=== PATIENT | female | born 1985 | race African-American/Black ===

== ENCOUNTER 2018-02-04 01:47 | Emergency (ER) | payer MEDICAID, OTHER ==
[~2018-02-04] VITALS: Ht 157.5 cm; Wt 50.0 kg
[2018-02-04] MEDS ORDERED: SODIUM CHLORIDE 0.9% 1,000 ML IV ONE (02:23)
[2018-02-04] MEDS ORDERED: ONDANSETRON HCL 4MG/2ML INJ IV STA (02:23)
[2018-02-04] MEDS ORDERED: MAGNESIUM/ALUMINUM HYDROXIDE/SIMETHICONE 30ML UDC PO STA (02:23)
[2018-02-04 03:18] LABS: CHLORIDE 94 mEq/L (98-107)
[2018-02-04 03:24] LABS: BASOPHILS % 0.6 % (0.0-2.0); EOSINOPHILS % 0.1 % (0.0-5.0); HEMOGLOBIN. 14.3 g/dL (12.0-16.0); MEAN CORPUSCULAR HEMOGLOBIN 28.4 pg (28.0-32.0); MEAN CORPUSCULAR VOLUME 87.5 fL (81.0-99.0); MEAN PLATELET VOLUME 8.1 fl (7.4-10.4); MONOCYTES % 6.1 % (2.0-8.0); NEUTROPHILS % 73.2 % (40.0-76.0); PLATELET 321 x1000/uL (130-400); RED BLOOD CELL COUNT 5.03 mill/uL (4.2-5.4); RED CELL DISTRIBUTION WIDTH 17.1 % (11.6-14.6)
[2018-02-04 05:33] VITALS: BP 134/93
== END 2018-02-04 05:36 | disposition home or self-care (01) ==
LOC: ER 01:47
DX: K21.9 Gastro-esophageal reflux disease without esophagitis (principal); F12.10 Cannabis abuse, uncomplicated
CPT/HCPCS: 36415; 80053; 83690; 85025; 96361; 96374; 99285; J2405; J7030

== ENCOUNTER 2019-10-14 16:04 | Emergency (ER) | payer MEDICAID ==
[~2019-10-14] VITALS: Ht 167.6 cm; Wt 52.0 kg
[2019-10-14] MEDS ORDERED: ACETAMINOPHEN 325MG TABLET PO STA (16:36)
[2019-10-14 17:07] LABS: HEMATOCRIT. 38.1 % (36.0-48.0); HEMOGLOBIN. 12.7 g/dL (12.0-16.0); MEAN CORPUSCULAR VOLUME 75.1 fL (81.0-99.0); MEAN PLATELET VOLUME 8.1 fl (7.4-10.4); PLATELET 360 x1000/uL (130-400); RED BLOOD CELL COUNT 5.07 mill/uL (4.2-5.4)
[2019-10-14 17:12] LABS: CHLORIDE 98 mEq/L (98-107)
[2019-10-14 17:22] LABS: PROTHROMBIN TIME 10.8 sec (9.6-11.0)
[2019-10-14 19:53] VITALS: BP 150/90
[2019-10-14 20:32] LABS: PLATELET ESTIMATE NORMAL
== END 2019-10-14 19:55 | disposition home or self-care (01) ==
LOC: ER 16:04
DX: R10.30 Lower abdominal pain, unspecified (principal); F12.10 Cannabis abuse, uncomplicated; D64.9 Anemia, unspecified; F20.9 Schizophrenia, unspecified; Z98.51 Tubal ligation status; Z87.19 Personal history of other diseases of the digestive system
CPT/HCPCS: 36415; 80053; 85025; 99283

== ENCOUNTER 2020-12-13 15:18 | Inpatient (IN) | payer MEDICAID ==
[~2020-12-13] VITALS: Ht 160 cm; Wt 46.3 kg
[2020-12-13] MEDS ORDERED: MAGNESIUM/ALUMINUM HYDROXIDE/SIMETHICONE 30ML UDC PO STA (15:53)
[2020-12-13] MEDS ORDERED: VISCOUS LIDOCAINE 2% 15 ML UDC PO STA (15:53)
[2020-12-13] MEDS ORDERED: ONDANSETRON HCL 4MG/2ML INJ IV STA (15:53)
[2020-12-13] MEDS ORDERED: SODIUM CHLORIDE 0.9% 1,000 ML IV ONE (16:00)
[2020-12-13 16:42] LABS: HEMATOCRIT. 34.4 % (36.0-48.0); HEMOGLOBIN. 11.3 g/dL (12.0-16.0); MEAN CORPUSCULAR HEMOGLOBIN 25.9 pg (28.0-32.0); MEAN CORPUSCULAR VOLUME 78.5 fL (81.0-99.0); MEAN PLATELET VOLUME 8.3 fl (7.4-10.4); PLATELET 353 x1000/uL (130-400); RED BLOOD CELL COUNT 4.38 mill/uL (4.2-5.4); RED CELL DISTRIBUTION WIDTH 22.5 % (11.6-14.6)
[2020-12-13] MEDS ORDERED: MORPHINE SULFATE 4 MG/ML CPJ (NOT FOR IM USE) IV ONE (16:45)
[2020-12-13 16:48] LABS: CHLORIDE 105 mEq/L (98-107)
[2020-12-13 16:51] LABS: PROTHROMBIN TIME 10.4 sec (9.6-11.0)
[2020-12-13 17:59] LABS: PLATELET ESTIMATE NORMAL
[2020-12-13 20:40] LABS: CLARITY URINE TURBID (CLEAR); COLOR URINE YELLOW (YELLOW); KETONES URINE NEGATIVE (NEGATIVE); LEUKOCYTE ESTERASE URINE 2+ (NEGATIVE); NITRITE URINE NEGATIVE (NEGATIVE); OCCULT BLOOD URINE 1+ (NEGATIVE); PROTEIN URINE 1+ (NEGATIVE); SPECIFIC GRAVITY URINE 1.025 (1.005-1.030)
[2020-12-13] MEDS ORDERED: IOHEXOL-300 100 ML BOTTLE ONE (21:12)
[2020-12-13] MEDS ORDERED: CEFTRIAXONE 1 G PREMIX 50 ML IV NR (22:15)
[2020-12-14 08:00] VITALS: BP 170/105
[2020-12-14] MEDS ORDERED: ONDANSETRON HCL 4MG/2ML INJ IV PRN ×2 (08:00→14:15)
[2020-12-14] MEDS ORDERED: NALOXONE HCL 0.4MG/ML VIAL IV PRN (08:00)
[2020-12-14] MEDS: SODIUM CHLORIDE 0.9% 1,000 ML IV SCH (08:50)
[2020-12-14] MEDS: PANTOPRAZOLE SODIUM 40 MG/VIAL IV SCH (08:50)
[2020-12-14] MEDS: CLONIDINE 0.1MG TABLET PO PRN ×2 (09:01→23:59)
[2020-12-14] MEDS: MORPHINE SULFATE 2 MG/ML CPJ (NOT FOR IM USE) IV PRN (09:02)
[2020-12-14 09:30] LABS: HEMOGLOBIN 11.7 g/dL (12.0-16.0); MEAN CORPUSCULAR VOLUME 77.9 fL (81.0-99.0); PLATELET 337 x1000/uL (130-400); RED CELL DISTRIBUTION WIDTH 22.7 % (11.6-14.6)
[2020-12-14 09:36] LABS: CHLORIDE 105 mEq/L (98-107)
[2020-12-14 10:22] VITALS: BP 170/105
[2020-12-14 12:00] VITALS: BP 171/100
[2020-12-14] MEDS ORDERED: PROPOFOL 200MG/20ML VIAL IV ONE (13:39)
[2020-12-14] MEDS ORDERED: SODIUM CHLORIDE 0.9% 1,000 ML IV SCH (14:15)
[2020-12-14] MEDS ORDERED: HYDRALAZINE 20MG/ML VIAL IV PRN ×2 (15:45→19:45)
[2020-12-14 16:15] LABS: TOTAL IRON BINDING CAPACITY 388 ug/dL (250-450)
[2020-12-14 17:15] LABS: BASOPHILS % 0.9 % (0.0-2.0); EOSINOPHILS % 0.1 % (0.0-5.0); HEMATOCRIT. 37.4 % (36.0-48.0); HEMOGLOBIN. 12.2 g/dL (12.0-16.0); LYMPHOCYTES % 22.1 % (20.0-50.0); MEAN CORPUSCULAR HEMOGLOBIN 25.4 pg (28.0-32.0); MEAN CORPUSCULAR VOLUME 77.8 fL (81.0-99.0); MEAN PLATELET VOLUME 8.3 fl (7.4-10.4); NEUTROPHILS % 71.9 % (40.0-76.0); PLATELET 345 x1000/uL (130-400); RED BLOOD CELL COUNT 4.81 mill/uL (4.2-5.4); RED CELL DISTRIBUTION WIDTH 22.8 % (11.6-14.6)
[2020-12-14 17:22] LABS: CHLORIDE 107 mEq/L (98-107)
[2020-12-14 17:33] LABS: CREATINE KINASE 29 IU/L (26-192)
[2020-12-14 17:35] LABS: CREATINE KINASE MB FRACTION < 1.0 ng/mL (0.5-3.6)
[2020-12-14 18:56] LABS: FOLIC ACID (FOLATE) SERUM 16.6 ng/mL (>5.38)
[2020-12-14] MEDS ORDERED: POTASSIUM CHLORIDE INJ 40 MEQ in DEXT 5% WATER 500 ML IV NR (20:00)
[2020-12-14] MEDS ORDERED: HYDRALAZINE 10 MG in SODIUM CHLORIDE 0.9% 49.5 ML IV PRN (20:00)
[2020-12-14] MEDS ORDERED: PROCHLORPERAZINE 10MG/2ML VIAL IV PRN (20:15)
[2020-12-14 20:28] LABS: T4 FREE 1.2 ng/dL (0.76-1.46)
[2020-12-14] MEDS ORDERED: IOHEXOL-350 100 ML BOTTLE ONE (21:26)
[2020-12-14 21:35] VITALS: BP 146/91
[2020-12-14] MEDS: NITROGLYCERIN OINT 1GM/INCH UDPKT TD SCH (22:00)
[2020-12-14 22:38] VITALS: BP 148/97
[2020-12-15] VITALS (13 sets, daily range): BP systolic 116–150; BP diastolic 73–94
[2020-12-15] MEDS: CEFTRIAXONE 1,000 MG in DEXTROSE 5% WATER 50 ML IV SCH ×2 (04:27→19:48)
[2020-12-15] MEDS: SODIUM CHLORIDE 0.9% 1,000 ML IV SCH ×2 (04:27→14:50)
[2020-12-15] MEDS: NITROGLYCERIN OINT 1GM/INCH UDPKT TD SCH ×3 (06:25→21:04)
[2020-12-15] MEDS: PANTOPRAZOLE SODIUM 40 MG/VIAL IV SCH (08:39)
[2020-12-15 09:46] LABS: BASOPHILS % 0.5 % (0.0-2.0); EOSINOPHILS % 0.4 % (0.0-5.0); HEMATOCRIT. 35.3 % (36.0-48.0); HEMOGLOBIN. 11.3 g/dL (12.0-16.0); LYMPHOCYTES % 21.1 % (20.0-50.0); MEAN CORPUSCULAR HEMOGLOBIN 25.1 pg (28.0-32.0); MEAN CORPUSCULAR VOLUME 78.6 fL (81.0-99.0); MEAN PLATELET VOLUME 8.7 fl (7.4-10.4); MONOCYTES % 7.3 % (2.0-8.0); NEUTROPHILS % 70.7 % (40.0-76.0); PLATELET 323 x1000/uL (130-400); RED BLOOD CELL COUNT 4.49 mill/uL (4.2-5.4); RED CELL DISTRIBUTION WIDTH 22.6 % (11.6-14.6)
[2020-12-15 09:52] LABS: CHLORIDE 105 mEq/L (98-107)
[2020-12-15] MEDS ORDERED: HYDRALAZINE 20MG/ML VIAL IV PRN (10:30)
[2020-12-15] MEDS ORDERED: POTASSIUM CHLORIDE INJ 40 MEQ in DEXT 5% WATER 250 ML IV SCH (12:00)
[2020-12-16] VITALS (11 sets, daily range): BP systolic 105–154; BP diastolic 60–92
[2020-12-16] MEDS: NITROGLYCERIN OINT 1GM/INCH UDPKT TD SCH ×3 (05:09→22:00)
[2020-12-16] MEDS: PANTOPRAZOLE SODIUM 40 MG/VIAL IV SCH (09:11)
[2020-12-16] MEDS: SODIUM CHLORIDE 0.9% 1,000 ML IV SCH ×2 (13:54)
[2020-12-16] MEDS: IRON SUCROSE COMPLEX 100 MG/5 ML ML IV SCH (18:34)
[2020-12-16] MEDS: CEFTRIAXONE 1,000 MG in DEXTROSE 5% WATER 50 ML IV SCH (20:52)
[2020-12-17] VITALS (15 sets, daily range): BP systolic 101–147; BP diastolic 62–87
[2020-12-17] MEDS: MORPHINE SULFATE 2 MG/ML CPJ (NOT FOR IM USE) IV PRN ×2 (00:16→19:49)
[2020-12-17] MEDS: SODIUM CHLORIDE 0.9% 1,000 ML IV SCH ×3 (04:48→15:11)
[2020-12-17] MEDS: NITROGLYCERIN OINT 1GM/INCH UDPKT TD SCH ×3 (05:57→22:42)
[2020-12-17] MEDS: PANTOPRAZOLE SODIUM 40 MG/VIAL IV SCH (08:43)
[2020-12-17] MEDS: METRONIDAZOLE 500 MG PREMIX 100 ML IV SCH ×2 (14:32→22:44)
[2020-12-17] MEDS: IRON SUCROSE COMPLEX 100 MG/5 ML ML IV SCH (16:35)
[2020-12-17] MEDS: CEFTRIAXONE 1,000 MG in DEXTROSE 5% WATER 50 ML IV SCH (19:48)
[2020-12-17 21:55] LABS: UCG SCREEN NEGATIVE
[2020-12-18] VITALS (10 sets, daily range): BP systolic 102–147; BP diastolic 60–90
[2020-12-18] MEDS: MORPHINE SULFATE 2 MG/ML CPJ (NOT FOR IM USE) IV PRN ×2 (00:10→04:20)
[2020-12-18] MEDS: SODIUM CHLORIDE 0.9% 1,000 ML IV SCH (02:00)
[2020-12-18] MEDS: NITROGLYCERIN OINT 1GM/INCH UDPKT TD SCH ×2 (05:50→22:00)
[2020-12-18] MEDS: METRONIDAZOLE 500 MG PREMIX 100 ML IV SCH ×2 (05:51→22:23)
[2020-12-18] MEDS: PANTOPRAZOLE SODIUM 40 MG/VIAL IV SCH (09:08)
[2020-12-18] MEDS ORDERED: BACITRACIN 50,000 UNITS/VIAL ONE (09:21)
[2020-12-18] MEDS ORDERED: BUPIVACAINE HCL/PF 0.5% (5MG/ML) 10ML ONE (09:21)
[2020-12-18 10:36] LABS: CHLORIDE 108 mEq/L (98-107)
[2020-12-18 11:52] LABS: BASOPHILS % 0.6 % (0.0-2.0); EOSINOPHILS % 0.4 % (0.0-5.0); HEMATOCRIT. 30.9 % (36.0-48.0); HEMOGLOBIN. 9.8 g/dL (12.0-16.0); LYMPHOCYTES % 17.8 % (20.0-50.0); MEAN CORPUSCULAR HEMOGLOBIN 25.1 pg (28.0-32.0); MEAN CORPUSCULAR VOLUME 78.9 fL (81.0-99.0); MONOCYTES % 9.3 % (2.0-8.0); NEUTROPHILS % 71.9 % (40.0-76.0); PLATELET 240 x1000/uL (130-400); RED BLOOD CELL COUNT 3.92 mill/uL (4.2-5.4); RED CELL DISTRIBUTION WIDTH 23.1 % (11.6-14.6)
[2020-12-18] MEDS ORDERED: HYDROMORPHONE HCL/PF 2MG/ML (OR) ONE (12:45)
[2020-12-18] MEDS ORDERED: PROPOFOL 200MG/20ML VIAL IV ONE (12:45)
[2020-12-18] MEDS ORDERED: ROCURONIUM BROMIDE 10MG/ML VIAL 5ML IV ONE (12:45)
[2020-12-18] MEDS ORDERED: FENTANYL CITRATE/PF 50MCG/ML 2ML VIAL ONE ×2 (12:45→15:17)
[2020-12-18] MEDS ORDERED: SUCCINYLCHOLINE CHLORIDE 200MG/10ML IV ONE (12:46)
[2020-12-18] MEDS ORDERED: MIDAZOLAM HCL 2 MG/2 ML VIAL ONE (12:46)
[2020-12-18] MEDS ORDERED: LIDOCAINE HCL/PF 1% 10 MG/ML 5ML VIAL ONE (12:46)
[2020-12-18] MEDS ORDERED: METRONIDAZOLE 500 MG PREMIX 100 ML IV ONE (14:01)
[2020-12-18] MEDS ORDERED: EPHEDRINE SULFATE 50MG/ML VIAL ONE (14:03)
[2020-12-18] MEDS ORDERED: ONDANSETRON HCL 4MG/2ML INJ IV PRN (15:15)
[2020-12-18] MEDS ORDERED: HYDROMORPHONE HCL/PF 2MG/ML CPJ IV PRN (15:15)
[2020-12-18] MEDS ORDERED: MEPERIDINE HCL/PF 25MG/ML CPJ IV PRN (15:15)
[2020-12-18] MEDS ORDERED: FENTANYL CITRATE/PF 50MCG/ML 2ML VIAL IV PRN (15:15)
[2020-12-18] MEDS ORDERED: GLYCOPYRROLATE 0.2 MG/ML 2ML VIAL ONE (15:28)
[2020-12-18] MEDS ORDERED: NEOSTIGMINE METHYLSULFATE 1MG/ML 10 ML VIAL ONE (15:28)
[2020-12-18] MEDS ORDERED: NALOXONE INJ IV PRN (16:15)
[2020-12-18] MEDS ORDERED: ONDANSETRON INJ IV PRN (16:15)
[2020-12-18] MEDS: HYDROMORPHONE PCA 10MG/50ML IV PRN (16:21)
[2020-12-18] MEDS: IRON SUCROSE COMPLEX 100 MG/5 ML ML IV SCH (17:00)
[2020-12-18] MEDS: CEFTRIAXONE 1,000 MG in DEXTROSE 5% WATER 50 ML IV SCH (20:24)
[2020-12-18] MEDS: DEXT 5%/0.45% NACL KCL 20MEQ/L 1,000 ML IV SCH (21:30)
[2020-12-19] VITALS (11 sets, daily range): BP systolic 113–147; BP diastolic 63–99
[2020-12-19] MEDS: NITROGLYCERIN OINT 1GM/INCH UDPKT TD SCH ×3 (06:00→22:00)
[2020-12-19] MEDS: METRONIDAZOLE 500 MG PREMIX 100 ML IV SCH ×3 (06:03→23:01)
[2020-12-19] MEDS: PANTOPRAZOLE SODIUM 40 MG/VIAL IV SCH (10:43)
[2020-12-19] MEDS: HYDROMORPHONE PCA 10MG/50ML IV PRN (10:46)
[2020-12-19] MEDS: DIPHENHYDRAMINE INJ IV PRN ×3 (11:00→20:25)
[2020-12-19] MEDS: DEXT 5%/0.45% NACL KCL 20MEQ/L 1,000 ML IV SCH ×2 (11:05→18:23)
[2020-12-19 17:44] LABS: EOSINOPHILS % 0.2 % (0.0-5.0); HEMATOCRIT. 26.2 % (36.0-48.0); HEMOGLOBIN. 8.6 g/dL (12.0-16.0); LYMPHOCYTES % 10.3 % (20.0-50.0); MEAN CORPUSCULAR HEMOGLOBIN 25.9 pg (28.0-32.0); MEAN PLATELET VOLUME 8.3 fl (7.4-10.4); MONOCYTES % 6.8 % (2.0-8.0); NEUTROPHILS % 82.7 % (40.0-76.0); PLATELET 250 x1000/uL (130-400); RED BLOOD CELL COUNT 3.32 mill/uL (4.2-5.4)
[2020-12-19 18:56] LABS: CHLORIDE 104 mEq/L (98-107)
[2020-12-20] VITALS (12 sets, daily range): BP systolic 107–136; BP diastolic 56–96
[2020-12-20] MEDS: DIPHENHYDRAMINE INJ IV PRN ×3 (01:16→18:32)
[2020-12-20] MEDS: HYDROMORPHONE PCA 10MG/50ML IV PRN ×2 (05:59→20:04)
[2020-12-20] MEDS: NITROGLYCERIN OINT 1GM/INCH UDPKT TD SCH ×3 (06:00→21:45)
[2020-12-20] MEDS: METRONIDAZOLE 500 MG PREMIX 100 ML IV SCH ×3 (06:16→21:06)
[2020-12-20] MEDS: DEXT 5%/0.45% NACL KCL 20MEQ/L 1,000 ML IV SCH ×3 (06:17→20:07)
[2020-12-20] MEDS ORDERED: CEFTRIAXONE 1,000 MG in DEXTROSE 5% WATER 50 ML IV SCH (07:00)
[2020-12-20] MEDS ORDERED: CEFTRIAXONE 1 G PREMIX 50 ML IV SCH (07:00)
[2020-12-20] MEDS: PANTOPRAZOLE SODIUM 40 MG/VIAL IV SCH (08:35)
[2020-12-20] MEDS: CEFTRIAXONE 1,000 MG in DEXTROSE 5% WATER 50 ML IV SCH (10:09)
[2020-12-21] VITALS (9 sets, daily range): BP systolic 84–114; BP diastolic 53–69
[2020-12-21] MEDS: METRONIDAZOLE 500 MG PREMIX 100 ML IV SCH ×3 (05:17→21:27)
[2020-12-21] MEDS: NITROGLYCERIN OINT 1GM/INCH UDPKT TD SCH ×3 (06:00→21:29)
[2020-12-21] MEDS: DEXT 5%/0.45% NACL KCL 20MEQ/L 1,000 ML IV SCH ×2 (08:16→21:30)
[2020-12-21] MEDS: PANTOPRAZOLE SODIUM 40 MG/VIAL IV SCH (08:42)
[2020-12-21] MEDS: CEFTRIAXONE 1,000 MG in DEXTROSE 5% WATER 50 ML IV SCH (11:04)
[2020-12-21] MEDS: HYDROMORPHONE HCL/PF 2MG/ML CPJ IV PRN ×2 (15:41→19:54)
[2020-12-21 18:23] LABS: HEMOGLOBIN. 10.5 g/dL (12.0-16.0); MEAN CORPUSCULAR HEMOGLOBIN 26.1 pg (28.0-32.0); MEAN CORPUSCULAR VOLUME 79.7 fL (81.0-99.0); MEAN PLATELET VOLUME 8.8 fl (7.4-10.4); PLATELET 291 x1000/uL (130-400); RED BLOOD CELL COUNT 4.01 mill/uL (4.2-5.4); RED CELL DISTRIBUTION WIDTH 23.5 % (11.6-14.6)
[2020-12-21 18:29] LABS: CHLORIDE 100 mEq/L (98-107)
[2020-12-21 21:04] LABS: PLATELET ESTIMATE NORMAL
[2020-12-21] MEDS: DIPHENHYDRAMINE 50MG/ML VIAL IV PRN (23:11)
[2020-12-22] VITALS: BP 102/59
[2020-12-22] MEDS: HYDROMORPHONE HCL/PF 2MG/ML CPJ IV PRN ×3 (00:35→20:51)
[2020-12-22 04:00] VITALS: BP 97/60
[2020-12-22] MEDS: NITROGLYCERIN OINT 1GM/INCH UDPKT TD SCH ×3 (05:41→22:00)
[2020-12-22] MEDS: METRONIDAZOLE 500 MG PREMIX 100 ML IV SCH ×3 (06:08→22:47)
[2020-12-22] MEDS: DIPHENHYDRAMINE 50MG/ML VIAL IV PRN ×3 (07:24→22:09)
[2020-12-22 08:00] VITALS: BP 90/55
[2020-12-22] MEDS: PANTOPRAZOLE SODIUM 40 MG/VIAL IV SCH (09:15)
[2020-12-22] MEDS: DEXT 5%/0.45% NACL 1000ML 1,000 ML IV SCH ×2 (09:15→18:02)
[2020-12-22] MEDS: KETOROLAC 30MG/ML VIAL IV PRN ×2 (09:16→15:27)
[2020-12-22 09:34] LABS: HEMATOCRIT. 29.1 % (36.0-48.0); HEMOGLOBIN. 9.5 g/dL (12.0-16.0); MEAN CORPUSCULAR HEMOGLOBIN 25.6 pg (28.0-32.0); MEAN PLATELET VOLUME 8.3 fl (7.4-10.4); PLATELET 250 x1000/uL (130-400); RED BLOOD CELL COUNT 3.73 mill/uL (4.2-5.4); RED CELL DISTRIBUTION WIDTH 23.7 % (11.6-14.6)
[2020-12-22 09:41] LABS: CHLORIDE 104 mEq/L (98-107)
[2020-12-22] MEDS: CEFTRIAXONE 1,000 MG in DEXTROSE 5% WATER 50 ML IV SCH (10:30)
[2020-12-22 12:00] VITALS: BP 89/60
[2020-12-22 14:07] LABS: PLATELET ESTIMATE NORMAL
[2020-12-22 16:00] VITALS: BP 95/52
[2020-12-22] MEDS ORDERED: HYDRALAZINE 10 MG in SODIUM CHLORIDE 0.9% 49.5 ML IV PRN (17:45)
[2020-12-22] MEDS: DEXT 5%/0.9% NACL 1,000 ML IV SCH (22:50)
[2020-12-23] VITALS (10 sets, daily range): BP systolic 88–116; BP diastolic 53–79
[2020-12-23] MEDS: HYDROMORPHONE HCL/PF 2MG/ML CPJ IV PRN ×3 (01:22→18:12)
[2020-12-23] MEDS: DIPHENHYDRAMINE 50MG/ML VIAL IV PRN ×4 (04:18→22:41)
[2020-12-23] MEDS: NITROGLYCERIN OINT 1GM/INCH UDPKT TD SCH ×2 (06:00→21:00)
[2020-12-23 06:40] LABS: CHLORIDE 106 mEq/L (98-107)
[2020-12-23 06:50] LABS: HEMATOCRIT. 21.6 % (36.0-48.0); HEMOGLOBIN. 7.3 g/dL (12.0-16.0); MEAN PLATELET VOLUME 8.4 fl (7.4-10.4); PLATELET 206 x1000/uL (130-400); RED CELL DISTRIBUTION WIDTH 23.9 % (11.6-14.6)
[2020-12-23] MEDS: DEXT 5%/0.9% NACL 1,000 ML IV SCH ×3 (07:03→22:15)
[2020-12-23] MEDS: KETOROLAC 30MG/ML VIAL IV PRN ×3 (08:27→21:06)
[2020-12-23] MEDS: PANTOPRAZOLE SODIUM 40 MG/VIAL IV SCH (08:27)
[2020-12-23] MEDS: CEFTRIAXONE 1,000 MG in DEXTROSE 5% WATER 50 ML IV SCH (10:58)
[2020-12-23] MEDS: METRONIDAZOLE 500 MG PREMIX 100 ML IV SCH ×2 (13:05→22:13)
[2020-12-23 15:27] LABS: NUCLEATED RED BLOOD CELLS 1 /100 WBC; PLATELET ESTIMATE NORMAL
[2020-12-23 21:38] LABS: HEMATOCRIT 27.4 % (36.0-48.0); HEMOGLOBIN 9.5 g/dL (12.0-16.0)
[2020-12-23] MEDS: ACETAMINOPHEN 650MG/20.3ML UDC PO PRN (22:33)
[2020-12-24] VITALS: BP 108/75
[2020-12-24] MEDS: HYDROMORPHONE HCL/PF 2MG/ML CPJ IV PRN ×8 (00:02→21:46)
[2020-12-24 04:00] VITALS: BP 103/69
[2020-12-24] MEDS: DIPHENHYDRAMINE 50MG/ML VIAL IV PRN ×3 (04:46→18:29)
[2020-12-24] MEDS: METRONIDAZOLE 500 MG PREMIX 100 ML IV SCH ×3 (06:40→22:00)
[2020-12-24] MEDS: DEXT 5%/0.9% NACL 1,000 ML IV SCH ×2 (06:52→22:00)
[2020-12-24 06:58] LABS: CHLORIDE 109 mEq/L (98-107)
[2020-12-24 07:20] LABS: HEMOGLOBIN. 8.7 g/dL (12.0-16.0); MEAN CORPUSCULAR HEMOGLOBIN 26.7 pg (28.0-32.0); MEAN CORPUSCULAR VOLUME 79.4 fL (81.0-99.0); MEAN PLATELET VOLUME 8.4 fl (7.4-10.4); PLATELET 158 x1000/uL (130-400); RED BLOOD CELL COUNT 3.27 mill/uL (4.2-5.4); RED CELL DISTRIBUTION WIDTH 22.2 % (11.6-14.6)
[2020-12-24 08:00] VITALS: BP 98/61
[2020-12-24] MEDS: NITROGLYCERIN OINT 1GM/INCH UDPKT TD SCH ×2 (09:00→21:00)
[2020-12-24] MEDS: CEFTRIAXONE 1,000 MG in DEXTROSE 5% WATER 50 ML IV SCH (10:19)
[2020-12-24] MEDS: PANTOPRAZOLE SODIUM 40 MG/VIAL IV SCH (10:22)
[2020-12-24 12:00] VITALS: BP 107/71
[2020-12-24 16:00] VITALS: BP 115/72
[2020-12-24 16:01] LABS: PLATELET ESTIMATE NORMAL
[2020-12-24 20:00] VITALS: BP 109/65
[2020-12-24] MEDS: KETOROLAC 30MG/ML VIAL IV PRN (20:12)
[2020-12-25] VITALS: BP 112/72
[2020-12-25] MEDS: HYDROMORPHONE HCL/PF 2MG/ML CPJ IV PRN ×5 (00:33→21:03)
[2020-12-25] MEDS: DIPHENHYDRAMINE 50MG/ML VIAL IV PRN ×2 (02:09→20:09)
[2020-12-25 04:00] VITALS: BP 110/74
[2020-12-25] MEDS: METRONIDAZOLE 500 MG PREMIX 100 ML IV SCH ×3 (06:08→21:03)
[2020-12-25] MEDS: DEXT 5%/0.9% NACL 1,000 ML IV SCH ×3 (06:09→19:04)
[2020-12-25] MEDS: KETOROLAC 30MG/ML VIAL IV PRN ×2 (06:09→19:03)
[2020-12-25 07:16] LABS: HEMATOCRIT. 30.8 % (36.0-48.0); MEAN CORPUSCULAR HEMOGLOBIN 26.3 pg (28.0-32.0); MEAN CORPUSCULAR VOLUME 80.9 fL (81.0-99.0); MEAN PLATELET VOLUME 8.8 fl (7.4-10.4); PLATELET 137 x1000/uL (130-400); RED BLOOD CELL COUNT 3.81 mill/uL (4.2-5.4); RED CELL DISTRIBUTION WIDTH 22.2 % (11.6-14.6)
[2020-12-25 07:28] LABS: CHLORIDE 115 mEq/L (98-107)
[2020-12-25] MEDS: NITROGLYCERIN OINT 1GM/INCH UDPKT TD SCH ×2 (08:34→21:00)
[2020-12-25] MEDS: PANTOPRAZOLE SODIUM 40 MG/VIAL IV SCH (08:56)
[2020-12-25] MEDS: CEFTRIAXONE 1,000 MG in DEXTROSE 5% WATER 50 ML IV SCH (09:06)
[2020-12-25] MEDS ORDERED: LACTULOSE 20G/30ML UDC PO PRN (16:00)
[2020-12-25 20:00] VITALS: BP 132/74
[2020-12-25 20:53] LABS: PLATELET ESTIMATE NORMAL
[2020-12-26] VITALS: BP 105/75
[2020-12-26] MEDS: HYDROMORPHONE HCL/PF 2MG/ML CPJ IV PRN ×5 (00:38→22:18)
[2020-12-26] MEDS: DIPHENHYDRAMINE 50MG/ML VIAL IV PRN ×3 (03:18→20:02)
[2020-12-26 04:00] VITALS: BP 105/75
[2020-12-26] MEDS: DEXT 5%/0.9% NACL 1,000 ML IV SCH ×2 (06:00→22:00)
[2020-12-26] MEDS: METRONIDAZOLE 500 MG PREMIX 100 ML IV SCH ×3 (06:09→22:22)
[2020-12-26] MEDS: KETOROLAC 30MG/ML VIAL IV PRN ×2 (06:10→18:45)
[2020-12-26 08:00] VITALS: BP 100/59
[2020-12-26] MEDS: FOLIC ACID 1MG TABLET PO SCH (09:00)
[2020-12-26] MEDS: THIAMINE HCL 100MG TABLET PO SCH (09:00)
[2020-12-26] MEDS: MULTIVITAMINS,THER W-MINERALS TABLET PO SCH (09:00)
[2020-12-26] MEDS: NITROGLYCERIN OINT 1GM/INCH UDPKT TD SCH ×2 (09:00→21:00)
[2020-12-26] MEDS: CEFTRIAXONE 1,000 MG in DEXTROSE 5% WATER 50 ML IV SCH (10:58)
[2020-12-26] MEDS: PANTOPRAZOLE SODIUM 40 MG/VIAL IV SCH (10:59)
[2020-12-26 12:00] VITALS: BP 80/45
[2020-12-26 16:00] VITALS: BP 121/79
[2020-12-26 20:00] VITALS: BP 111/68
[2020-12-27] VITALS: BP 111/69
[2020-12-27] MEDS: KETOROLAC 30MG/ML VIAL IV PRN ×2 (02:27→09:32)
[2020-12-27] MEDS: DIPHENHYDRAMINE 50MG/ML VIAL IV PRN ×2 (03:33→17:39)
[2020-12-27 04:00] VITALS: BP 133/87
[2020-12-27] MEDS: HYDROMORPHONE HCL/PF 2MG/ML CPJ IV PRN ×3 (04:44→20:14)
[2020-12-27] MEDS: DEXT 5%/0.9% NACL 1,000 ML IV SCH ×3 (05:15→20:58)
[2020-12-27] MEDS: METRONIDAZOLE 500 MG PREMIX 100 ML IV SCH ×3 (06:29→20:58)
[2020-12-27 08:00] VITALS: BP 120/77
[2020-12-27] MEDS: MULTIVITAMINS,THER W-MINERALS TABLET PO SCH (08:42)
[2020-12-27] MEDS: THIAMINE HCL 100MG TABLET PO SCH (08:42)
[2020-12-27] MEDS: FOLIC ACID 1MG TABLET PO SCH (08:42)
[2020-12-27 08:45] LABS: BASOPHILS % 0.2 % (0.0-2.0); EOSINOPHILS % 0.1 % (0.0-5.0); HEMATOCRIT. 25.5 % (36.0-48.0); HEMOGLOBIN. 8.5 g/dL (12.0-16.0); MEAN CORPUSCULAR HEMOGLOBIN 26.4 pg (28.0-32.0); MEAN PLATELET VOLUME 9.2 fl (7.4-10.4); MONOCYTES % 4.5 % (2.0-8.0); NEUTROPHILS % 79.2 % (40.0-76.0); PLATELET 174 x1000/uL (130-400); RED BLOOD CELL COUNT 3.22 mill/uL (4.2-5.4); RED CELL DISTRIBUTION WIDTH 22.7 % (11.6-14.6)
[2020-12-27 08:53] LABS: CHLORIDE 116 mEq/L (98-107)
[2020-12-27] MEDS: NITROGLYCERIN OINT 1GM/INCH UDPKT TD SCH ×2 (09:00→20:20)
[2020-12-27] MEDS: PANTOPRAZOLE SODIUM 40 MG/VIAL IV SCH (09:26)
[2020-12-27] MEDS: CEFTRIAXONE 1,000 MG in DEXTROSE 5% WATER 50 ML IV SCH (11:19)
[2020-12-27 12:00] VITALS: BP 139/77
[2020-12-27 16:00] VITALS: BP 125/80
[2020-12-27 20:00] VITALS: BP 143/87
[2020-12-27] MEDS ORDERED: NALOXONE HCL 0.4MG/ML VIAL IV PRN (20:00)
[2020-12-28] VITALS: BP 109/78
[2020-12-28] MEDS: HYDROMORPHONE HCL/PF 2MG/ML CPJ IV PRN ×6 (00:32→21:16)
[2020-12-28 04:00] VITALS: BP 141/83
[2020-12-28 05:15] VITALS: BP 141/83
[2020-12-28] MEDS: DEXT 5%/0.9% NACL 1,000 ML IV SCH ×3 (06:00→21:22)
[2020-12-28] MEDS: MULTIVITAMINS,THER W-MINERALS TABLET PO SCH (08:47)
[2020-12-28] MEDS: THIAMINE HCL 100MG TABLET PO SCH (08:47)
[2020-12-28] MEDS: NITROGLYCERIN OINT 1GM/INCH UDPKT TD SCH ×2 (08:47→21:22)
[2020-12-28] MEDS: FOLIC ACID 1MG TABLET PO SCH (08:47)
[2020-12-28] MEDS: PANTOPRAZOLE SODIUM 40 MG/VIAL IV SCH (08:49)
[2020-12-28] MEDS ORDERED: LIDOCAINE HCL 1% 20ML VIAL (Pyxis) INJ ONE (11:52)
[2020-12-28] MEDS ORDERED: LIDOCAINE HCL 2% JELLY 5ML ONE (11:52)
[2020-12-28] MEDS ORDERED: IOHEXOL-300 50 ML BOTTLE IV ONE (11:59)
[2020-12-28 16:00] VITALS: BP 113/78
[2020-12-28] MEDS: DIPHENHYDRAMINE 50MG/ML VIAL IV PRN (19:39)
[2020-12-28 20:00] VITALS: BP 122/83
[2020-12-28] MEDS ORDERED: POTASSIUM CHLORIDE INJ 40 MEQ in DEXT 5% WATER 500 ML IV NR (21:30)
[2020-12-29] VITALS: BP 135/79
[2020-12-29] MEDS: HYDROMORPHONE HCL/PF 2MG/ML CPJ IV PRN ×8 (00:31→21:49)
[2020-12-29 04:00] VITALS: BP 123/81
[2020-12-29] MEDS: DEXT 5%/0.9% NACL 1,000 ML IV SCH ×3 (05:43→22:03)
[2020-12-29] MEDS ORDERED: ZOLPIDEM TARTRATE 5MG TABLET PO PRN (06:00)
[2020-12-29 06:48] LABS: CHLORIDE 117 mEq/L (98-107)
[2020-12-29 06:49] LABS: BASOPHILS % 0.2 % (0.0-2.0); EOSINOPHILS % 0.1 % (0.0-5.0); HEMATOCRIT. 26.3 % (36.0-48.0); HEMOGLOBIN. 8.5 g/dL (12.0-16.0); LYMPHOCYTES % 10.8 % (20.0-50.0); MEAN CORPUSCULAR HEMOGLOBIN 25.9 pg (28.0-32.0); MONOCYTES % 9.3 % (2.0-8.0); NEUTROPHILS % 79.6 % (40.0-76.0); PLATELET 329 x1000/uL (130-400); RED BLOOD CELL COUNT 3.29 mill/uL (4.2-5.4); RED CELL DISTRIBUTION WIDTH 22.6 % (11.6-14.6)
[2020-12-29 08:00] VITALS: BP 133/85
[2020-12-29] MEDS: THIAMINE HCL 100MG TABLET PO SCH (09:22)
[2020-12-29] MEDS: PANTOPRAZOLE SODIUM 40 MG/VIAL IV SCH (09:23)
[2020-12-29] MEDS: FOLIC ACID 1MG TABLET PO SCH (09:23)
[2020-12-29] MEDS: MULTIVITAMINS,THER W-MINERALS TABLET PO SCH (09:23)
[2020-12-29] MEDS: NITROGLYCERIN OINT 1GM/INCH UDPKT TD SCH ×2 (09:24→20:21)
[2020-12-29] MEDS ORDERED: LIDOCAINE HCL 2% JELLY 5ML ONE (09:24)
[2020-12-29] MEDS ORDERED: IOHEXOL-300 50 ML BOTTLE IV ONE (09:24)
[2020-12-29] MEDS ORDERED: LIDOCAINE HCL 1% 20ML VIAL (Pyxis) INJ ONE (09:24)
[2020-12-29 12:00] VITALS: BP 123/78
[2020-12-29 16:00] VITALS: BP 132/85
[2020-12-29 20:40] VITALS: BP 124/83
[2020-12-30] VITALS: BP 120/77
[2020-12-30] MEDS: HYDROMORPHONE HCL/PF 2MG/ML CPJ IV PRN ×8 (00:51→22:09)
[2020-12-30 04:00] VITALS: BP 119/74
[2020-12-30] MEDS: DEXT 5%/0.9% NACL 1,000 ML IV SCH ×3 (05:34→21:28)
[2020-12-30 08:00] VITALS: BP 116/68
[2020-12-30] MEDS: NITROGLYCERIN OINT 1GM/INCH UDPKT TD SCH ×3 (09:00→21:26)
[2020-12-30] MEDS: FOLIC ACID 1MG TABLET PO SCH (09:19)
[2020-12-30] MEDS: THIAMINE HCL 100MG TABLET PO SCH (09:19)
[2020-12-30] MEDS: PANTOPRAZOLE SODIUM 40 MG/VIAL IV SCH (09:19)
[2020-12-30] MEDS: ACETAMINOPHEN 650MG/20.3ML UDC PO PRN (09:19)
[2020-12-30] MEDS: MULTIVITAMINS,THER W-MINERALS TABLET PO SCH (09:36)
[2020-12-30 12:00] VITALS: BP 111/66
[2020-12-30 16:00] VITALS: BP 125/76
[2020-12-30 20:29] VITALS: BP 143/60
[2020-12-30] MEDS ORDERED: ZOLPIDEM TARTRATE 5MG TABLET GT PRN (21:30)
[2020-12-31] MEDS: HYDROMORPHONE HCL/PF 2MG/ML CPJ IV PRN ×10 (00:14→23:41)
[2020-12-31 02:51] VITALS: BP 146/77
[2020-12-31 05:31] VITALS: BP 151/72
[2020-12-31] MEDS: DEXT 5%/0.9% NACL 1,000 ML IV SCH ×3 (06:11→23:40)
[2020-12-31] MEDS ORDERED: PHENYLEPHRINE HCL 10 MG/ML 1ML (IV VIAL) IV ONE (07:47)
[2020-12-31 08:00] VITALS: BP 124/85
[2020-12-31] MEDS: PANTOPRAZOLE SODIUM 40 MG/VIAL IV SCH (08:45)
[2020-12-31] MEDS: MULTIVITAMINS,THER W-MINERALS TABLET PO SCH (09:00)
[2020-12-31] MEDS: FOLIC ACID 1MG TABLET PO SCH (09:00)
[2020-12-31] MEDS: THIAMINE HCL 100MG TABLET PO SCH (09:00)
[2020-12-31] MEDS ORDERED: DIATR MEGLU/DIATRIZOATE SOLN 30ML ONE (10:02)
[2020-12-31 12:00] VITALS: BP 126/80
[2020-12-31] MEDS: NITROGLYCERIN OINT 1GM/INCH UDPKT TD SCH ×2 (13:26→20:43)
[2020-12-31 16:00] VITALS: BP 157/81
[2020-12-31 20:00] VITALS: BP 132/81
[2021-01-01] VITALS: BP 122/73
[2021-01-01] MEDS: HYDROMORPHONE HCL/PF 2MG/ML CPJ IV PRN ×7 (03:23→21:17)
[2021-01-01 04:00] VITALS: BP 120/78
[2021-01-01 06:34] LABS: CHLORIDE 116 mEq/L (98-107)
[2021-01-01 07:04] LABS: BASOPHILS % 0.2 % (0.0-2.0); EOSINOPHILS % 0.1 % (0.0-5.0); HEMATOCRIT. 23.6 % (36.0-48.0); HEMOGLOBIN. 7.8 g/dL (12.0-16.0); LYMPHOCYTES % 9.9 % (20.0-50.0); MEAN CORPUSCULAR VOLUME 81.1 fL (81.0-99.0); MEAN PLATELET VOLUME 8.6 fl (7.4-10.4); MONOCYTES % 10.1 % (2.0-8.0); NEUTROPHILS % 79.7 % (40.0-76.0); PLATELET 670 x1000/uL (130-400); RED BLOOD CELL COUNT 2.91 mill/uL (4.2-5.4); RED CELL DISTRIBUTION WIDTH 22.3 % (11.6-14.6)
[2021-01-01] MEDS: DEXT 5%/0.9% NACL 1,000 ML IV SCH ×3 (07:05→23:01)
[2021-01-01 08:00] VITALS: BP 124/72
[2021-01-01] MEDS: MULTIVITAMINS,THER W-MINERALS TABLET PO SCH (09:00)
[2021-01-01] MEDS: NITROGLYCERIN OINT 1GM/INCH UDPKT TD SCH ×2 (09:00→23:02)
[2021-01-01] MEDS: THIAMINE HCL 100MG TABLET PO SCH (09:00)
[2021-01-01] MEDS: FOLIC ACID 1MG TABLET PO SCH (09:00)
[2021-01-01] MEDS: PANTOPRAZOLE SODIUM 40 MG/VIAL IV SCH (09:41)
[2021-01-01] MEDS ORDERED: DIATR MEGLU/DIATRIZOATE SOLN 120ML ONE (11:19)
[2021-01-01] MEDS ORDERED: POTASSIUM CHLORIDE INJ 40 MEQ in DEXT 5% WATER 500 ML IV NR (11:45)
[2021-01-01 12:00] VITALS: BP 141/73
[2021-01-01 16:00] VITALS: BP 131/90
[2021-01-01 20:00] VITALS: BP 132/78
[2021-01-02] VITALS: BP 121/79
[2021-01-02] MEDS: HYDROMORPHONE HCL/PF 2MG/ML CPJ IV PRN ×9 (01:33→22:15)
[2021-01-02 04:00] VITALS: BP 117/78
[2021-01-02] MEDS: DEXT 5%/0.9% NACL 1,000 ML IV SCH ×3 (07:51→22:15)
[2021-01-02 08:00] VITALS: BP 124/84
[2021-01-02] MEDS: MULTIVITAMINS,THER W-MINERALS TABLET PO SCH (08:18)
[2021-01-02] MEDS: PANTOPRAZOLE SODIUM 40 MG/VIAL IV SCH (08:18)
[2021-01-02] MEDS: NITROGLYCERIN OINT 1GM/INCH UDPKT TD SCH ×2 (08:19→22:14)
[2021-01-02 12:00] VITALS: BP 132/82
[2021-01-02 16:00] VITALS: BP 134/83
[2021-01-02 20:00] VITALS: BP 142/83
[2021-01-03] VITALS: BP 136/81
[2021-01-03] MEDS: HYDROMORPHONE HCL/PF 2MG/ML CPJ IV PRN ×11 (00:38→23:07)
[2021-01-03 04:00] VITALS: BP 132/84
[2021-01-03] MEDS: DEXT 5%/0.9% NACL 1,000 ML IV SCH ×3 (06:45→21:02)
[2021-01-03 08:00] VITALS: BP 132/81
[2021-01-03] MEDS: PANTOPRAZOLE SODIUM 40 MG/VIAL IV SCH (08:57)
[2021-01-03] MEDS: NITROGLYCERIN OINT 1GM/INCH UDPKT TD SCH ×2 (08:57→20:51)
[2021-01-03] MEDS: MULTIVITAMINS,THER W-MINERALS TABLET PO SCH (08:57)
[2021-01-03 12:00] VITALS: BP 125/80
[2021-01-03 16:00] VITALS: BP 144/87
[2021-01-03 20:00] VITALS: BP 139/77
[2021-01-04] MEDS: HYDROMORPHONE HCL/PF 2MG/ML CPJ IV PRN ×10 (01:16→23:42)
[2021-01-04 04:00] VITALS: BP 134/82
[2021-01-04] MEDS: DEXT 5%/0.9% NACL 1,000 ML IV SCH ×3 (05:47→22:31)
[2021-01-04 07:41] LABS: CHLORIDE 108 mEq/L (98-107)
[2021-01-04 08:00] VITALS: BP 116/69
[2021-01-04] MEDS: NITROGLYCERIN OINT 1GM/INCH UDPKT TD SCH ×2 (09:00→21:00)
[2021-01-04] MEDS: MULTIVITAMINS,THER W-MINERALS TABLET PO SCH (09:00)
[2021-01-04] MEDS: PANTOPRAZOLE SODIUM 40 MG/VIAL IV SCH (09:04)
[2021-01-04 12:00] VITALS: BP 125/82
[2021-01-04 16:00] VITALS: BP 119/75
[2021-01-04 17:22] LABS: BASOPHILS % 0.5 % (0.0-2.0); EOSINOPHILS % 0.3 % (0.0-5.0); HEMATOCRIT. 21.6 % (36.0-48.0); HEMOGLOBIN. 7.4 g/dL (12.0-16.0); LYMPHOCYTES % 13.7 % (20.0-50.0); MEAN CORPUSCULAR HEMOGLOBIN 27.2 pg (28.0-32.0); MEAN CORPUSCULAR VOLUME 79.6 fL (81.0-99.0); MEAN PLATELET VOLUME 7.7 fl (7.4-10.4); MONOCYTES % 12.3 % (2.0-8.0); NEUTROPHILS % 73.2 % (40.0-76.0); PLATELET 641 x1000/uL (130-400); RED BLOOD CELL COUNT 2.71 mill/uL (4.2-5.4); RED CELL DISTRIBUTION WIDTH 22.3 % (11.6-14.6)
[2021-01-04 18:25] LABS: PLATELET ESTIMATE MARKEDLY INCREASED
[2021-01-04 20:00] VITALS: BP 123/75
[2021-01-04] MEDS ORDERED: POTASSIUM CHLORIDE INJ 40 MEQ in DEXT 5% WATER 500 ML IV NR (20:30)
[2021-01-05] VITALS: BP 120/76
[2021-01-05] MEDS: HYDROMORPHONE HCL/PF 2MG/ML CPJ IV PRN ×9 (01:56→21:20)
[2021-01-05 04:00] VITALS: BP 118/74
[2021-01-05] MEDS: DEXT 5%/0.9% NACL 1,000 ML IV SCH ×3 (06:00→22:49)
[2021-01-05 06:42] LABS: CHLORIDE 109 mEq/L (98-107)
[2021-01-05 08:00] VITALS: BP 126/77
[2021-01-05] MEDS: MULTIVITAMINS,THER W-MINERALS TABLET PO SCH (08:46)
[2021-01-05] MEDS: NITROGLYCERIN OINT 1GM/INCH UDPKT TD SCH ×2 (08:47→21:19)
[2021-01-05] MEDS: PANTOPRAZOLE SODIUM 40 MG/VIAL IV SCH (08:47)
[2021-01-05 12:00] VITALS: BP 112/65
[2021-01-05] MEDS ORDERED: POTASSIUM CHLORIDE INJ 40 MEQ in DEXT 5% WATER 500 ML IV SCH (12:00)
[2021-01-05] MEDS ORDERED: MAGNESIUM 2 G PREMIX 50 ML IV NR (14:00)
[2021-01-05] MEDS: POTASSIUM CHLORIDE 20MEQ TABLET SR PO SCH ×2 (18:20→21:19)
[2021-01-05 20:00] VITALS: BP 135/83
[2021-01-05] MEDS: ZOLPIDEM TARTRATE 5MG TABLET GT PRN (22:49)
[2021-01-06] VITALS (11 sets, daily range): BP systolic 119–137; BP diastolic 82–89
[2021-01-06] MEDS: HYDROMORPHONE HCL/PF 2MG/ML CPJ IV PRN ×7 (03:11→21:59)
[2021-01-06] MEDS: DEXT 5%/0.9% NACL 1,000 ML IV SCH ×3 (06:36→23:04)
[2021-01-06 07:54] LABS: CHLORIDE 108 mEq/L (98-107)
[2021-01-06] MEDS: NITROGLYCERIN OINT 1GM/INCH UDPKT TD SCH ×2 (09:00→23:04)
[2021-01-06] MEDS: PANTOPRAZOLE SODIUM 40 MG/VIAL IV SCH (09:18)
[2021-01-06] MEDS: POTASSIUM CHLORIDE 20MEQ TABLET SR PO SCH ×2 (09:18→12:38)
[2021-01-06] MEDS: MULTIVITAMINS,THER W-MINERALS TABLET PO SCH (09:18)
[2021-01-06] MEDS ORDERED: POTASSIUM CHLORIDE 10MEQ TABLET SR PO SCH (15:30)
[2021-01-06 17:54] LABS: HEMATOCRIT 30.1 % (36.0-48.0); HEMOGLOBIN 10.3 g/dL (12.0-16.0)
[2021-01-06] MEDS: POTASSIUM CHLORIDE 20MEQ/PACKET PO SCH (18:16)
[2021-01-06] MEDS: ZOLPIDEM TARTRATE 5MG TABLET GT PRN (23:59)
[2021-01-07] VITALS: BP 131/84
[2021-01-07] MEDS: HYDROMORPHONE HCL/PF 2MG/ML CPJ IV PRN ×8 (01:49→22:32)
[2021-01-07 04:00] VITALS: BP 119/73
[2021-01-07] MEDS: DEXT 5%/0.9% NACL 1,000 ML IV SCH ×3 (05:01→21:31)
[2021-01-07 06:40] LABS: BASOPHILS % 0.2 % (0.0-2.0); EOSINOPHILS % 0.1 % (0.0-5.0); HEMATOCRIT. 28.4 % (36.0-48.0); HEMOGLOBIN. 9.4 g/dL (12.0-16.0); LYMPHOCYTES % 8.4 % (20.0-50.0); MEAN CORPUSCULAR HEMOGLOBIN 27.3 pg (28.0-32.0); MEAN CORPUSCULAR VOLUME 82.5 fL (81.0-99.0); MONOCYTES % 11.8 % (2.0-8.0); NEUTROPHILS % 79.5 % (40.0-76.0); PLATELET 585 x1000/uL (130-400); RED BLOOD CELL COUNT 3.44 mill/uL (4.2-5.4)
[2021-01-07 06:52] LABS: CHLORIDE 108 mEq/L (98-107)
[2021-01-07 08:00] VITALS: BP 125/84
[2021-01-07] MEDS: POTASSIUM CHLORIDE 20MEQ/PACKET PO SCH (08:25)
[2021-01-07] MEDS: PANTOPRAZOLE SODIUM 40 MG/VIAL IV SCH (08:25)
[2021-01-07] MEDS: NITROGLYCERIN OINT 1GM/INCH UDPKT TD SCH ×2 (08:25→20:07)
[2021-01-07] MEDS: MULTIVITAMINS,THER W-MINERALS TABLET PO SCH (08:25)
[2021-01-07 12:00] VITALS: BP 131/89
[2021-01-07 16:00] VITALS: BP 154/92
[2021-01-07 20:00] VITALS: BP 130/89
[2021-01-07] MEDS: ACETAMINOPHEN 650MG/20.3ML UDC GT PRN (20:07)
[2021-01-07] MEDS: ZOLPIDEM TARTRATE 5MG TABLET GT PRN (21:29)
[2021-01-08] VITALS: BP 135/86
[2021-01-08] MEDS: HYDROMORPHONE HCL/PF 2MG/ML CPJ IV PRN ×10 (00:40→23:01)
[2021-01-08 04:00] VITALS: BP 150/91
[2021-01-08] MEDS: DEXT 5%/0.9% NACL 1,000 ML IV SCH ×3 (05:30→21:06)
[2021-01-08 08:00] VITALS: BP 126/91
[2021-01-08] MEDS: NITROGLYCERIN OINT 1GM/INCH UDPKT TD SCH ×2 (08:36→21:05)
[2021-01-08] MEDS: PANTOPRAZOLE SODIUM 40 MG/VIAL IV SCH (08:36)
[2021-01-08] MEDS: POTASSIUM CHLORIDE 20MEQ/PACKET PO SCH (08:36)
[2021-01-08] MEDS: MULTIVITAMINS,THER W-MINERALS TABLET PO SCH (08:36)
[2021-01-08 09:25] LABS: CHLORIDE 105 mEq/L (98-107)
[2021-01-08 12:00] VITALS: BP 154/95
[2021-01-08 16:00] VITALS: BP 148/93
[2021-01-08 20:00] VITALS: BP 147/103
[2021-01-08] MEDS: METRONIDAZOLE 500 MG PREMIX 100 ML IV SCH (22:59)
[2021-01-09] VITALS: BP 134/89
[2021-01-09] MEDS: HYDROMORPHONE HCL/PF 2MG/ML CPJ IV PRN ×10 (01:18→22:07)
[2021-01-09 04:00] VITALS: BP 140/98
[2021-01-09] MEDS: METRONIDAZOLE 500 MG PREMIX 100 ML IV SCH ×3 (05:49→22:08)
[2021-01-09] MEDS: DEXT 5%/0.9% NACL 1,000 ML IV SCH ×3 (05:50→22:08)
[2021-01-09 08:00] VITALS: BP 135/90
[2021-01-09 08:11] LABS: BASOPHILS % 0.2 % (0.0-2.0); EOSINOPHILS % 0.4 % (0.0-5.0); HEMATOCRIT. 28.8 % (36.0-48.0); HEMOGLOBIN. 9.6 g/dL (12.0-16.0); LYMPHOCYTES % 8.2 % (20.0-50.0); MEAN CORPUSCULAR HEMOGLOBIN 27.2 pg (28.0-32.0); MEAN CORPUSCULAR VOLUME 82.1 fL (81.0-99.0); MEAN PLATELET VOLUME 7.6 fl (7.4-10.4); MONOCYTES % 12.8 % (2.0-8.0); NEUTROPHILS % 78.4 % (40.0-76.0); PLATELET 435 x1000/uL (130-400); RED BLOOD CELL COUNT 3.51 mill/uL (4.2-5.4); RED CELL DISTRIBUTION WIDTH 21.1 % (11.6-14.6)
[2021-01-09 08:39] LABS: CHLORIDE 104 mEq/L (98-107)
[2021-01-09] MEDS: MULTIVITAMINS,THER W-MINERALS TABLET PO SCH (10:37)
[2021-01-09] MEDS: POTASSIUM CHLORIDE 20MEQ/PACKET PO SCH (10:37)
[2021-01-09] MEDS: PANTOPRAZOLE SODIUM 40 MG/VIAL IV SCH (10:37)
[2021-01-09] MEDS: NITROGLYCERIN OINT 1GM/INCH UDPKT TD SCH ×2 (10:37→21:00)
[2021-01-09] MEDS: CEFEPIME 1,000 MG in DEXTROSE 5% WATER 50 ML IV SCH ×3 (10:38→22:08)
[2021-01-09 12:00] VITALS: BP 133/88
[2021-01-09] MEDS ORDERED: NALOXONE HCL 0.4MG/ML VIAL IV PRN (13:15)
[2021-01-09 20:00] VITALS: BP 115/77
[2021-01-10] VITALS: BP 135/78
[2021-01-10] MEDS: HYDROMORPHONE HCL/PF 2MG/ML CPJ IV PRN ×8 (01:20→22:09)
[2021-01-10] MEDS: ACETAMINOPHEN 650MG/20.3ML UDC GT PRN (02:14)
[2021-01-10] MEDS: ZOLPIDEM TARTRATE 5MG TABLET GT PRN (03:29)
[2021-01-10 04:00] VITALS: BP 119/71
[2021-01-10] MEDS: METRONIDAZOLE 500 MG PREMIX 100 ML IV SCH ×3 (05:31→22:07)
[2021-01-10] MEDS: DEXT 5%/0.9% NACL 1,000 ML IV SCH ×3 (05:32→22:06)
[2021-01-10 05:56] LABS: CHLORIDE 105 mEq/L (98-107)
[2021-01-10 06:24] LABS: BASOPHILS % 0.2 % (0.0-2.0); EOSINOPHILS % 0.2 % (0.0-5.0); HEMATOCRIT. 29.9 % (36.0-48.0); HEMOGLOBIN. 9.7 g/dL (12.0-16.0); LYMPHOCYTES % 8.8 % (20.0-50.0); MEAN CORPUSCULAR VOLUME 83.6 fL (81.0-99.0); MONOCYTES % 9.9 % (2.0-8.0); NEUTROPHILS % 80.9 % (40.0-76.0); PLATELET 407 x1000/uL (130-400); RED BLOOD CELL COUNT 3.58 mill/uL (4.2-5.4); RED CELL DISTRIBUTION WIDTH 21.5 % (11.6-14.6)
[2021-01-10 08:00] VITALS: BP 127/86
[2021-01-10] MEDS: MULTIVITAMINS,THER W-MINERALS TABLET PO SCH (09:34)
[2021-01-10] MEDS: NITROGLYCERIN OINT 1GM/INCH UDPKT TD SCH ×2 (09:35→22:07)
[2021-01-10] MEDS: PANTOPRAZOLE SODIUM 40 MG/VIAL IV SCH (09:35)
[2021-01-10] MEDS: POTASSIUM CHLORIDE 20MEQ/PACKET PO SCH ×3 (09:36→16:37)
[2021-01-10 12:00] VITALS: BP 138/91
[2021-01-10] MEDS: CEFEPIME 1,000 MG in DEXTROSE 5% WATER 50 ML IV SCH ×2 (12:09→23:39)
[2021-01-10 16:00] VITALS: BP 125/91
[2021-01-10 20:00] VITALS: BP 134/97
[2021-01-10] MEDS ORDERED: ZOLPIDEM TARTRATE 5MG TABLET PO PRN (21:45)
[2021-01-11] VITALS: BP 114/71
[2021-01-11] MEDS: HYDROMORPHONE HCL/PF 2MG/ML CPJ IV PRN ×4 (02:12→15:14)
[2021-01-11 04:00] VITALS: BP 141/91
[2021-01-11] MEDS: METRONIDAZOLE 500 MG PREMIX 100 ML IV SCH ×3 (06:00→21:28)
[2021-01-11 08:00] VITALS: BP 120/81
[2021-01-11] MEDS: PANTOPRAZOLE SODIUM 40 MG/VIAL IV SCH (09:20)
[2021-01-11] MEDS: MULTIVITAMINS,THER W-MINERALS TABLET PO SCH (09:20)
[2021-01-11] MEDS: ACETAMINOPHEN 650MG/20.3ML UDC GT PRN (09:20)
[2021-01-11] MEDS: POTASSIUM CHLORIDE 20MEQ/PACKET PO SCH ×3 (09:20→18:04)
[2021-01-11] MEDS: NITROGLYCERIN OINT 1GM/INCH UDPKT TD SCH (09:21)
[2021-01-11] MEDS: CEFEPIME 1,000 MG in DEXTROSE 5% WATER 50 ML IV SCH ×2 (10:57→22:03)
[2021-01-11] MEDS: DEXT 5%/0.9% NACL 1,000 ML IV SCH ×3 (10:57→21:28)
[2021-01-11 12:00] VITALS: BP 117/81
[2021-01-11 13:18] LABS: BASOPHILS % 0.2 % (0.0-2.0); EOSINOPHILS % 0.2 % (0.0-5.0); HEMATOCRIT. 31.2 % (36.0-48.0); HEMOGLOBIN. 10.2 g/dL (12.0-16.0); LYMPHOCYTES % 8.6 % (20.0-50.0); MEAN CORPUSCULAR HEMOGLOBIN 27.3 pg (28.0-32.0); MEAN CORPUSCULAR VOLUME 83.8 fL (81.0-99.0); MEAN PLATELET VOLUME 7.6 fl (7.4-10.4); MONOCYTES % 9.6 % (2.0-8.0); NEUTROPHILS % 81.4 % (40.0-76.0); PLATELET 398 x1000/uL (130-400); RED BLOOD CELL COUNT 3.72 mill/uL (4.2-5.4); RED CELL DISTRIBUTION WIDTH 21.8 % (11.6-14.6)
[2021-01-11 13:21] LABS: CHLORIDE 106 mEq/L (98-107)
[2021-01-11 16:00] VITALS: BP 133/91
[2021-01-11] MEDS: HYDROCODONE/ACETAMINOPHEN 5/325MG TABLET PO PRN ×2 (18:06→22:48)
[2021-01-11 22:48] VITALS: BP 130/85
[2021-01-12] VITALS: BP 136/93
[2021-01-12 04:00] VITALS: BP 135/93
[2021-01-12] MEDS: DEXT 5%/0.9% NACL 1,000 ML IV SCH ×3 (05:59→20:25)
[2021-01-12] MEDS: METRONIDAZOLE 500 MG PREMIX 100 ML IV SCH ×3 (05:59→20:24)
[2021-01-12] MEDS: HYDROCODONE/ACETAMINOPHEN 5/325MG TABLET PO PRN (06:14)
[2021-01-12 08:00] VITALS: BP 111/81
[2021-01-12] MEDS: POTASSIUM CHLORIDE 20MEQ/PACKET PO SCH ×3 (09:42→18:00)
[2021-01-12] MEDS: MULTIVITAMINS,THER W-MINERALS TABLET PO SCH (09:42)
[2021-01-12] MEDS: HYDROMORPHONE HCL/PF 2MG/ML CPJ IV PRN ×4 (09:56→22:02)
[2021-01-12 11:08] LABS: BASOPHILS % 0.2 % (0.0-2.0); EOSINOPHILS % 0.3 % (0.0-5.0); HEMATOCRIT. 30.8 % (36.0-48.0); LYMPHOCYTES % 9.1 % (20.0-50.0); MEAN CORPUSCULAR HEMOGLOBIN 27.2 pg (28.0-32.0); MEAN CORPUSCULAR VOLUME 83.4 fL (81.0-99.0); MEAN PLATELET VOLUME 7.9 fl (7.4-10.4); MONOCYTES % 8.5 % (2.0-8.0); NEUTROPHILS % 81.9 % (40.0-76.0); PLATELET 403 x1000/uL (130-400); RED BLOOD CELL COUNT 3.69 mill/uL (4.2-5.4); RED CELL DISTRIBUTION WIDTH 21.4 % (11.6-14.6)
[2021-01-12 11:31] LABS: CHLORIDE 104 mEq/L (98-107)
[2021-01-12] MEDS: CEFEPIME 1,000 MG in DEXTROSE 5% WATER 50 ML IV SCH ×2 (11:38→22:05)
[2021-01-12 12:00] VITALS: BP 115/80
[2021-01-12 16:00] VITALS: BP 130/98
[2021-01-12 20:00] VITALS: BP 129/85
[2021-01-13] VITALS: BP 125/80
[2021-01-13] MEDS: HYDROMORPHONE HCL/PF 2MG/ML CPJ IV PRN ×6 (02:09→23:35)
[2021-01-13 04:00] VITALS: BP 120/75
[2021-01-13] MEDS: METRONIDAZOLE 500 MG PREMIX 100 ML IV SCH ×2 (05:30→13:36)
[2021-01-13] MEDS: DEXT 5%/0.9% NACL 1,000 ML IV SCH ×3 (05:30→22:55)
[2021-01-13 08:00] VITALS: BP 120/81
[2021-01-13] MEDS: POTASSIUM CHLORIDE 20MEQ/PACKET PO SCH ×3 (09:00→17:00)
[2021-01-13] MEDS: MULTIVITAMINS,THER W-MINERALS TABLET PO SCH (09:00)
[2021-01-13] MEDS: CEFEPIME 1,000 MG in DEXTROSE 5% WATER 50 ML IV SCH (10:09)
[2021-01-13 12:00] VITALS: BP 118/78
[2021-01-13 16:00] VITALS: BP 110/74
[2021-01-13] MEDS: HYDROCODONE/ACETAMINOPHEN 5/325MG TABLET PO PRN (17:12)
[2021-01-13 20:00] VITALS: BP 135/88
[2021-01-14] VITALS: BP 136/79
[2021-01-14] MEDS: HYDROMORPHONE HCL/PF 2MG/ML CPJ IV PRN ×5 (03:42→20:35)
[2021-01-14 04:00] VITALS: BP 127/89
[2021-01-14] MEDS: DEXT 5%/0.9% NACL 1,000 ML IV SCH ×3 (06:48→20:42)
[2021-01-14 08:00] VITALS: BP 116/76
[2021-01-14] MEDS: MULTIVITAMINS,THER W-MINERALS TABLET PO SCH (08:51)
[2021-01-14] MEDS: POTASSIUM CHLORIDE 20MEQ/PACKET PO SCH ×3 (08:52→17:00)
[2021-01-14 09:32] LABS: BASOPHILS % 0.2 % (0.0-2.0); EOSINOPHILS % 0.2 % (0.0-5.0); HEMATOCRIT. 32.5 % (36.0-48.0); HEMOGLOBIN. 10.5 g/dL (12.0-16.0); LYMPHOCYTES % 8.3 % (20.0-50.0); MEAN CORPUSCULAR VOLUME 83.6 fL (81.0-99.0); MEAN PLATELET VOLUME 7.4 fl (7.4-10.4); MONOCYTES % 6.6 % (2.0-8.0); NEUTROPHILS % 84.7 % (40.0-76.0); PLATELET 409 x1000/uL (130-400); RED BLOOD CELL COUNT 3.89 mill/uL (4.2-5.4); RED CELL DISTRIBUTION WIDTH 21.7 % (11.6-14.6)
[2021-01-14 09:53] LABS: CHLORIDE 102 mEq/L (98-107)
[2021-01-14 12:00] VITALS: BP 128/86
[2021-01-14 16:00] VITALS: BP 144/87
[2021-01-14 20:00] VITALS: BP 143/93
[2021-01-15] VITALS: BP 130/92
[2021-01-15] MEDS: HYDROMORPHONE HCL/PF 2MG/ML CPJ IV PRN ×6 (00:41→21:08)
[2021-01-15 04:00] VITALS: BP 131/89
[2021-01-15] MEDS: DEXT 5%/0.9% NACL 1,000 ML IV SCH ×3 (05:40→21:08)
[2021-01-15 08:00] VITALS: BP 126/88
[2021-01-15] MEDS: MULTIVITAMINS,THER W-MINERALS TABLET PO SCH (08:46)
[2021-01-15] MEDS: POTASSIUM CHLORIDE 20MEQ/PACKET PO SCH ×3 (08:46→17:04)
[2021-01-15] MEDS: HYDROCODONE/ACETAMINOPHEN 5/325MG TABLET PO PRN (11:02)
[2021-01-15 12:00] VITALS: BP 126/50
[2021-01-15 16:00] VITALS: BP 128/80
[2021-01-15] MEDS ORDERED: NALOXONE HCL 0.4MG/ML VIAL IV PRN (18:30)
[2021-01-15 20:00] VITALS: BP 114/75
[2021-01-16] MEDS: HYDROMORPHONE HCL/PF 2MG/ML CPJ IV PRN ×4 (01:34→22:44)
[2021-01-16 04:00] VITALS: BP 107/67
[2021-01-16] MEDS: DEXT 5%/0.9% NACL 1,000 ML IV SCH ×3 (05:22→22:39)
[2021-01-16] MEDS: HYDROCODONE/ACETAMINOPHEN 5/325MG TABLET PO PRN ×2 (05:23→12:46)
[2021-01-16 08:00] VITALS: BP 109/69
[2021-01-16] MEDS: POTASSIUM CHLORIDE 20MEQ/PACKET PO SCH ×3 (09:07→16:41)
[2021-01-16] MEDS: MULTIVITAMINS,THER W-MINERALS TABLET PO SCH (09:07)
[2021-01-16 12:00] VITALS: BP 122/73
[2021-01-16 16:00] VITALS: BP 112/74
[2021-01-16] MEDS ORDERED: HYDROCODONE/ACETAMINOPHEN 5/325MG TABLET PO PRN (18:45)
[2021-01-16 20:00] VITALS: BP 112/73
[2021-01-17] VITALS: BP 107/69
[2021-01-17 04:00] VITALS: BP 105/81
[2021-01-17] MEDS: HYDROMORPHONE HCL/PF 2MG/ML CPJ IV PRN ×3 (04:52→18:35)
[2021-01-17] MEDS: DEXT 5%/0.9% NACL 1,000 ML IV SCH ×3 (07:09→22:08)
[2021-01-17 08:00] VITALS: BP 111/78
[2021-01-17] MEDS: MULTIVITAMINS,THER W-MINERALS TABLET PO SCH (09:02)
[2021-01-17] MEDS: POTASSIUM CHLORIDE 20MEQ/PACKET PO SCH ×3 (09:02→17:54)
[2021-01-17 12:00] VITALS: BP 107/71
[2021-01-17] MEDS: HYDROCODONE/ACETAMINOPHEN 5/325MG TABLET PO PRN ×3 (14:27→22:12)
[2021-01-17 16:00] VITALS: BP 108/71
[2021-01-17 20:00] VITALS: BP 116/74
[2021-01-18] VITALS (7 sets, daily range): BP systolic 109–121; BP diastolic 70–80
[2021-01-18] MEDS: HYDROMORPHONE HCL/PF 2MG/ML CPJ IV PRN ×4 (01:17→19:50)
[2021-01-18] MEDS: HYDROCODONE/ACETAMINOPHEN 5/325MG TABLET PO PRN (04:44)
[2021-01-18] MEDS: DEXT 5%/0.9% NACL 1,000 ML IV SCH ×2 (05:22→13:48)
[2021-01-18 07:22] LABS: BASOPHILS % 0.4 % (0.0-2.0); EOSINOPHILS % 0.2 % (0.0-5.0); HEMATOCRIT. 29.4 % (36.0-48.0); HEMOGLOBIN. 9.4 g/dL (12.0-16.0); LYMPHOCYTES % 8.4 % (20.0-50.0); MEAN CORPUSCULAR HEMOGLOBIN 27.2 pg (28.0-32.0); MEAN CORPUSCULAR VOLUME 84.8 fL (81.0-99.0); MEAN PLATELET VOLUME 7.4 fl (7.4-10.4); MONOCYTES % 7.8 % (2.0-8.0); NEUTROPHILS % 83.2 % (40.0-76.0); PLATELET 423 x1000/uL (130-400); RED BLOOD CELL COUNT 3.46 mill/uL (4.2-5.4); RED CELL DISTRIBUTION WIDTH 21.4 % (11.6-14.6)
[2021-01-18 07:30] LABS: CHLORIDE 102 mEq/L (98-107)
[2021-01-18] MEDS: MULTIVITAMINS,THER W-MINERALS TABLET PO SCH (10:10)
[2021-01-18] MEDS: POTASSIUM CHLORIDE 20MEQ/PACKET PO SCH ×2 (10:11→13:46)
== END 2021-01-18 20:10 | DRG 220 ==
LOC: ER 15:18 → 6EST 23:21 → ENRESERV 12-14 02:18 → 5EST 12-14 22:04 → 6EST 12-21 15:23
PROVIDERS: ADMIT Internal Medicine; ATTEND Internal Medicine
PROC: 0DB78ZX Excision of Stomach, Pylorus, Via Natural or Artificial Opening Endoscopic, Diagnostic (ICD-10-PCS; 2020-12-14)
PROC: 0D160ZA Bypass Stomach to Jejunum, Open Approach (ICD-10-PCS; principal; 2020-12-18)
PROC: 008Q0ZZ Division of Vagus Nerve, Open Approach (ICD-10-PCS; 2020-12-18)
PROC: 0DB60ZZ Excision of Stomach, Open Approach (ICD-10-PCS; 2020-12-18)
PROC: 0DHA0UZ Insertion of Feeding Device into Jejunum, Open Approach (ICD-10-PCS; 2020-12-18)
PROC: 30233N1 Transfusion of Nonautologous Red Blood Cells into Peripheral Vein, Percutaneous Approach (ICD-10-PCS; 2020-12-23)
PROC: 0DH63UZ Insertion of Feeding Device into Stomach, Percutaneous Approach (ICD-10-PCS; 2020-12-29)
PROC: 0DP6XUZ Removal of Feeding Device from Stomach, External Approach (ICD-10-PCS; 2020-12-29)
DX: K31.1 Adult hypertrophic pyloric stenosis (principal); A41.9 Sepsis, unspecified organism; E46 Unspecified protein-calorie malnutrition; K26.9 Duodenal ulcer, unspecified as acute or chronic, without hemorrhage or perforation; K22.10 Ulcer of esophagus without bleeding; F14.10 Cocaine abuse, uncomplicated; D50.9 Iron deficiency anemia, unspecified; K29.50 Unspecified chronic gastritis without bleeding; F17.210 Nicotine dependence, cigarettes, uncomplicated; E87.5 Hyperkalemia; F20.9 Schizophrenia, unspecified; I10 Essential (primary) hypertension; I16.0 Hypertensive urgency; J47.9 Bronchiectasis, uncomplicated; N39.0 Urinary tract infection, site not specified; K82.8 Other specified diseases of gallbladder; Z20.822 Contact with and (suspected) exposure to COVID-19; Z87.19 Personal history of other diseases of the digestive system; Z91.14 Patient's other noncompliance with medication regimen; Z74.01 Bed confinement status; K21.9 Gastro-esophageal reflux disease without esophagitis; I45.81 Long QT syndrome; R00.0 Tachycardia, unspecified; Z68.1 Body mass index [BMI] 19.9 or less, adult; R13.10 Dysphagia, unspecified; K80.20 Calculus of gallbladder without cholecystitis without obstruction; B96.81 Helicobacter pylori [H. pylori] as the cause of diseases classified elsewhere
CPT/HCPCS: 36415; 36598; 49450; 71045; 71275; 74018; 74177; 74249; 80048; 80053; 81003; 81025; 82550; 82553; 82607; 82728; 82746; 82941; 83540; 83550; 83735; 83880; 84132; 84145; 84439; 84443; 84484; 84702; 85014; 85018; 85025; 85027; 85044; 85379; 86850; 86900; 86920; 87426; 88305; 88307; 88312; 88313; 93005; 93306; 93970; 97110; 97116; 97162; 97530; 99285; A6261; C1725; C1758; C1769; C9113; J0330; J0360; J0692; J0696; J1170; J1200; J1885; J2250; J2270; J2370; J2405; J2704; J2710; J3010; J3475; J3480; J3490; J7030; J7040; J7042; J7060; J7070; L8514; P9016; Q9963; Q9967